=== PATIENT | female | born 1955 | race Two or more races ===

== ENCOUNTER → 2018-07-27 07:06 | Outpatient (CLI) | payer OTHER | END | disposition home or self-care (01) | LOC: LAB 07:06 | DX: N20.0 Calculus of kidney (principal) ==

== ENCOUNTER → 2018-07-29 | Outpatient (CLI) | payer OTHER | END | disposition home or self-care (01) | LOC: SONOGRAMA 07:20 | DX: R22.9 Localized swelling, mass and lump, unspecified (principal) ==

== ENCOUNTER 2022-02-28 13:52 | Outpatient (CLI) | payer OTHER | END 2022-02-28 14:02 | disposition home or self-care (01) | LOC: RAD 13:52 | PROVIDERS: ATTEND Internal Medicine Endocrinology, Diabetes & Metabolism | DX: I10 Essential (primary) hypertension (principal) ==

== ENCOUNTER 2022-07-10 10:21 | Outpatient (CLI) | payer OTHER | END 2022-07-10 10:23 | disposition home or self-care (01) | LOC: LAB 10:21 | DX: J30.9 Allergic rhinitis, unspecified (principal) ==

== ENCOUNTER 2022-07-10 10:50 | Outpatient (CLI) | payer OTHER | END 2022-07-10 11:02 | disposition home or self-care (01) | LOC: TOM 10:50 | PROVIDERS: ATTEND Otolaryngology | DX: H61.23 Impacted cerumen, bilateral (principal); J30.9 Allergic rhinitis, unspecified; K11.21 Acute sialoadenitis ==

== ENCOUNTER 2023-09-29 09:01 | Outpatient (CLI) | payer OTHER | END 2023-09-29 09:04 | disposition home or self-care (01) | LOC: RAD 09:01 | PROVIDERS: ATTEND General Practice | DX: I70.0 Atherosclerosis of aorta (principal) ==

== ENCOUNTER 2023-11-06 09:05 | Outpatient (CLI) | payer OTHER | END 2023-11-06 09:07 | disposition home or self-care (01) | LOC: RAD 09:05 | DX: M99.01 Segmental and somatic dysfunction of cervical region (principal); M54.2 Cervicalgia; M99.02 Segmental and somatic dysfunction of thoracic region; M54.6 Pain in thoracic spine; M99.03 Segmental and somatic dysfunction of lumbar region; M54.59 Other low back pain ==